=== PATIENT | male | born 1955 | race Caucasian/White ===

== ENCOUNTER → 2016-11-23 | Outpatient (CLI) | payer BC ==
[2016-11-23 11:23] LABS: BASO % 0.4 % (0.0-1.0); EOS # 0.4 10*3/uL (0.0-0.4); EOS % 4.6 % (1.0-4.0); HEMATOCRIT 39.1 % (42.0-52.0); HEMOGLOBIN 13.2 g/dl (14.0-18.0); LYMPH # 3.3 10*3/uL (1.3-4.4); LYMPH % 36.1 % (27.0-41.0); MEAN CELL VOLUME 91.1 fl (80.0-94.0); MEAN CORPUSCULAR HGB 30.8 pg (27.0-31.0); MEAN CORPUSCULAR HGB CONC 33.8 g/dl (33.0-37.0); MONO # 0.6 10*3/uL (0.1-1.0); MONO % 7.1 % (3.0-9.0); NEUT # 4.6 10*3/uL (2.3-7.9); NEUT % 51.4 % (47.0-73.0); PLATELET COUNT AUTOMATED 209 10*3/uL (130-400); RED BLOOD COUNT 4.29 10*6/uL (4.50-5.90); RED CELL DISTRI WIDTH 14.1 % (0-14.5)
[2016-11-23 11:30] LABS: PROTHROMBIN TIME 22.1 SECONDS (9.0-12.4)
[2016-11-23 11:35] LABS: BILIRUBIN NEGATIVE (NEGATIVE); BLOOD NEGATIVE (NEGATIVE); CLARITY CLEAR (CLEAR); COLOR YELLOW (YELLOW); GLUCOSE 1+ (NEGATIVE); KETONE NEGATIVE (NEGATIVE); LEUKO ESTERASE NEGATIVE (NEGATIVE); NITRITE NEGATIVE (NEGATIVE); PROTEIN NEGATIVE (NEGATIVE); UROBILINOGEN 0.2 E.U./dl (0.2-1.0)
[2016-11-23 11:36] LABS: BUN 31 mg/dl (7-24); CARBON DIOXIDE 28 mmol/L (21-32); CHLORIDE 102 mmol/L (98-107); EST GLOM FILT AFRICAN AMERICAN > 60 ml/min; GLUCOSE 181 mg/dL (65-99); POTASSIUM 5.1 mmol/L (3.5-5.1); SODIUM 140 mmol/L (136-145)
[2016-11-23 16:56] LABS: HEMOGLOBIN A1c 8.7 % (4.8-5.6)
== END | disposition home or self-care (01) ==
LOC: LAB 10:33
PROVIDERS: Nurse Practitioner Acute Care
DX: Z01.818 Encounter for other preprocedural examination (principal); I25.5 Ischemic cardiomyopathy; E11.69 Type 2 diabetes mellitus with other specified complication; I11.0 Hypertensive heart disease with heart failure; I50.9 Heart failure, unspecified; Z87.891 Personal history of nicotine dependence

== ENCOUNTER 2018-01-13 16:08 | Emergency (ER) | payer BC ==
[~2018-01-13] VITALS: Wt 104.3 kg
--- NOTE | ~2018-01-13 | EKG ---
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
[2018-01-13 16:45] LABS: BASO # 0.1 10*3/uL (0.0-0.1); BASO % 0.6 % (0.0-1.0); EOS # 0.2 10*3/uL (0.0-0.4); EOS % 2.6 % (1.0-4.0); HEMATOCRIT 45.9 % (42.0-52.0); HEMOGLOBIN 15.5 g/dl (14.0-18.0); LYMPH # 2.4 10*3/uL (1.3-4.4); LYMPH % 28.7 % (27.0-41.0); MEAN CELL VOLUME 91.4 fl (80.0-94.0); MEAN CORPUSCULAR HGB 30.9 pg (27.0-31.0); MEAN CORPUSCULAR HGB CONC 33.8 g/dl (33.0-37.0); MEAN PLATELET VOLUME 10.9 fl (9.6-12.3); MONO # 0.5 10*3/uL (0.1-1.0); MONO % 5.9 % (3.0-9.0); NEUT # 5.3 10*3/uL (2.3-7.9); PLATELET COUNT AUTOMATED 191 10*3/uL (130-400); RED BLOOD COUNT 5.02 10*6/uL (4.50-5.90); WHITE BLOOD COUNT 8.5 10*3/uL (4.8-10.8)
[2018-01-13 16:53] LABS: ACT PARTIAL THROMBO TIME 22.3 SECONDS (20.8-31.5)
[2018-01-13 17:05] LABS: ALBUMIN 3.6 gm/dl (3.1-4.5); BUN 22 mg/dl (7-24); CHLORIDE 103 mmol/L (98-107); CREATININE 1.42 mg/dL (0.70-1.30); POTASSIUM 4.7 mmol/L (3.5-5.1); SGOT/AST 13 IU/L (3-35); SGPT/ALT 22 U/L (12-78); SODIUM 138 mmol/L (136-145); TOTAL PROTEIN 7.3 gm/dL (6.4-8.2)
[2018-01-13 17:08] LABS: ALKALINE PHOSPHATASE 78 U/L (45-117); TROPONIN I 0.053 ng/ml (<0.045)
[2018-01-13] MEDS ORDERED: LIPITOR40 MG PO (17:20)
[2018-01-13] MEDS ORDERED: ASPIRIN81 M1 PO (17:20)
[2018-01-13] MEDS ORDERED: COREG25 MG PO (17:21)
[2018-01-13] MEDS ORDERED: FUROSEMIDE20 M1 PO (17:22)
[2018-01-13] MEDS ORDERED: DIGOXIN250 MCG PO (17:22)
[2018-01-13] MEDS ORDERED: GLIPIZIDE10 M2 PO (17:23)
[2018-01-13] MEDS ORDERED: ALDACTONE25 MG PO (17:24)
[2018-01-13] MEDS ORDERED: GLUCOPHAGE500 M1 PO (17:24)
[2018-01-13] MEDS ORDERED: ACETAMINOPHEN325 M3 PO (17:24)
[2018-01-13] MEDS ORDERED: AMOXICILLIN500 M3 PO (17:25)
== END 2018-01-13 19:07 | disposition short-term general hospital (02) ==
LOC: ED 16:08
PROVIDERS: Emergency Medicine
DX: I47.2 Ventricular tachycardia (principal); I51.9 Heart disease, unspecified; E11.9 Type 2 diabetes mellitus without complications; Z95.0 Presence of cardiac pacemaker; Z79.899 Other long term (current) drug therapy; Z79.82 Long term (current) use of aspirin

== ENCOUNTER 2021-08-24 18:21 | Emergency (ER) | payer MEDICARE ==
[~2021-08-24 18:21] MED LIST: ACETAMINOPHEN325 M3 PO; ALDACTONE25 MG PO; AMOXICILLIN500 M3 PO; ASPIRIN ADULT L81 M2 PO; ASPIRIN81 M1 PO; BETAPACE120 MG PO; CARVEDILOL3.125 MG PO; COREG25 MG PO; Clopidogrel75 MG PO; DIGOXIN250 MCG PO; ENTRESTO 24 MG1 EACH PO; ENTRESTO 49 MG1 EACH PO; FUROSEMIDE20 M1 PO; GLIPIZIDE10 M2 PO; GLIPIZIDE5 MG PO; GLUCOPHAGE500 M1 PO; JANUMET XR 50-1 EACH PO; JANUVIA50 MG PO; LIPITOR40 MG PO; XARE20MG PO
== END 2021-08-24 21:00 ==
LOC: ED 18:21
DX: I46.9 Cardiac arrest, cause unspecified (principal)